=== PATIENT | female | born 1950 ===

== ENCOUNTER → 2016-10-24 | Outpatient (CLI) | payer MEDICARE, OTHER | LOC: RAD 08:55 | PROVIDERS: ATTEND Internal Medicine Nephrology | DX: I12.9 Hypertensive chronic kidney disease with stage 1 through stage 4 chronic kidney disease, or unspecified chronic kidney disease (principal); N18.3 Chronic kidney disease, stage 3 (moderate); E87.6 Hypokalemia | CPT/HCPCS: 93976 ==

== ENCOUNTER → 2019-10-27 | Outpatient (CLI) | payer MEDICARE, OTHER ==
--- NOTE | 2019-10-27 10:47 | RADIOLOGY REPORT (SQ) ---
EXAM DESCRIPTION: DUPLEX ART/SANA FLOW COMPLETE COMPLETED DATE/TIME: 10/27/2019 8:13 am REASON FOR STUDY: GILBERT (I70.1) I70.1 ATHEROSCLEROSIS OF RENAL ARTERY COMPARISON: None. TECHNIQUE: Realtime and static grayscale images acquired. Selected color Doppler, velocities and spe ctral images recorded. LIMITATIONS: None. FINDINGS: RIGHT KIDNEY: RENAL ARTERY VELOCITIES: 64 cm/sec. Segmental artery velocity 21 cm/sec. RENAL VEIN: Color doppler flow present, patent. VELOCITY RATIO: 1.6. Normal waveforms. KIDNEY: Normal size. Mild dilatation of the renal pelvis. LEFT KIDNEY: RENAL ARTERY VELOCITIES: 61 cm/sec. Segmental artery velocity 13 cm/sec. RENAL VEIN: Color doppler flow present, patent. VELOCITY RATIO: 1.0. Normal waveforms. KIDNEY: Normal size. Possible solid mass 1.8 cm lower pole. BLADDER: Normal. OTHER: No other significant finding. IMPRESSION: 1. No evidence of renal artery stenosis. 2. Abnormalities in both kidneys for which follow-up dedicated renal CT or MRI is recommended. COMMENT: NORMAL RENAL ARTERY/AORTA VELOCITY RATIO IS LESS THAN OR EQUAL TO 3.5. TECHNICAL DOCUMENTATION: JOB ID: [id number] [employer]- All Rights Reserved Reading location - IP/workstation name: [email or web address]
== END ==
LOC: RAD 07:15
PROVIDERS: ATTEND Internal Medicine
DX: I70.1 Atherosclerosis of renal artery (principal)
CPT/HCPCS: 93975